=== PATIENT | male | born 2000 | race Caucasian/White ===

== ENCOUNTER 2024-07-06 11:34 | Emergency (ER) | payer SELFPAY ==
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
[2024-07-06 12:42] VITALS: BP 124/68; TEMP 97.9; O2SAT 100
== END 2024-07-06 12:37 | disposition home or self-care (01) ==
LOC: ER 11:34
DX: S50.871A Other superficial bite of right forearm, initial encounter (principal); W50.3XXA Accidental bite by another person, initial encounter; Y99.0 Civilian activity done for income or pay
CPT/HCPCS: 99283